=== PATIENT | female | born 1945 | race Caucasian/White ===

== ENCOUNTER → 2016-12-10 | Outpatient (CLI) | payer OTHER ==
[~2016-12-10] MED LIST: OPTIRAY 320 IV PRN
--- NOTE | 2016-12-10 15:04 | DIAGNOSTIC IMAGING REPORT ---
CT OF THE CHEST WITH IV CONTRAST CLINICAL HISTORY: Solitary pulmonary nodule. COMPARISON STUDY: CT of the abdomen and pelvis November 30, [address] of the chest, abdomen pelvis April 01, 2016. TECHNIQUE: Following IV administration of 82 mL of Optiray-320, helical axial images of the chest were obtained. Images were viewed in the axial, sagittal and coronal planes. IV contrast was administered without complication. CT DOSE: 227.67 mGy.cm FINDINGS: No enlarged axillary, mediastinal or hilar lymph nodes are present. The size of the heart is normal. There is no pericardial effusion. There are several calcified right hilar lymph nodes. Central airways are patent. There is no pneumothorax or pleural effusion. Several subpleural opacities reflect atelectasis. Mild subpleural biapical opacities reflect scarring. There is no consolidation to suggest pneumonia. Bony thorax is unremarkable. There are no abnormalities within visualized portions of the upper abdomen. Pancreatic glandular atrophy is unchanged since prior exams. IMPRESSION: 1. No suspicious pulmonary nodules. 2. No acute intrathoracic findings. 3. No thoracic lymphadenopathy. Electronically signed by: Michael Lee M.D. 12/10/2016 3:03 PM Dictated Date/Time: 12/10/2016 2:10 PM
== END | disposition home or self-care (01) ==
LOC: C.CTS 13:14
DX: R91.1 Solitary pulmonary nodule (principal)